=== PATIENT | female | born 1955 | race Two or more races ===

== ENCOUNTER 2020-03-30 21:51 | Inpatient (IN) | payer MEDICAID, OTHER ==
[~2020-03-30] VITALS: Ht 167.6 cm; Wt 56.2 kg
--- NOTE | 2020-03-30 22:10 | NUR ---
LOREE FROM [facility] [place] FOR C/O FEVER. pt afebrile upon arrival temp of 98.8. PT TESTED +FOR COVID 19 ON 03/27. vs checked. stable. iv access started blood draw done. sent to lab
[2020-03-30] MEDS ORDERED: IV NS 0.9% 500 ML BAG IV ONE (22:30)
--- NOTE | 2020-03-30 22:41 | NUR ---
urine collected sent to lab
[2020-03-30 22:55] LABS: BASOPHILS % (AUTO) 0.8 % (0.0-2.0); EOSINOPHILS % (AUTO) 2.5 % (0.0-6.0); HEMATOCRIT 39 % (33-45); HEMOGLOBIN 12.8 g/dL (11.5-14.8); LYMPHOCYTES # (AUTO) 1.8 /CMM (0.8-4.8); LYMPHOCYTES % (AUTO) 49.6 % (20.0-44.0); MEAN CORPUSCULAR HGB CONC 33 g/dl (31.0-36.0); MEAN CORPUSCULAR VOLUME 92 fL (82-100); MONOCYTES # (AUTO) 0.3 /CMM (0.1-1.30); MONOCYTES % (AUTO) 7.8 % (2.0-12.0); NEUTROPHILS # (AUTO) 1.4 /CMM (1.8-8.9); NEUTROPHILS % (AUTO) 39.3 % (43.0-81.0); PLATELET COUNT (AUTO) 331 /CMM (150-450); RED BLOOD CELL COUNT(AUTO) 4.18 MIL/uL (4.0-5.2); WHITE BLOOD COUNT (AUTO) 3.6 K/uL (4.3-11.0)
[2020-03-30 22:56] LABS: BILIRUBIN,URINE Negative (NEGATIVE); COLOR,URINE YELLOW (YELLOW); LEUKOCYTE ESTERASE ,URINE Trace (NEGATIVE); NITRITE, URINE Negative (NEGATIVE); PROTEIN,URINE Negative (NEGATIVE); UGLUCOSE Negative (NEGATIVE); UROBILINOGEN,URINE 0.2 EU/dL (0.2)
[2020-03-30 23:05] LABS: CALCIUM, SERUM 8.3 mg/dL (8.5-10.1); CARBON DIOXIDE 24 mmol/L (21-32); CHLORIDE 104 mmol/L (98-107); CREATININE 1.1 mg/dL (0.6-1.3); GLUCOSE 101 mg/dL (74-106); POTASSIUM 3.8 mmol/L (3.5-5.1); SODIUM SERUM 138 mmol/L (136-145); UREA NITROGEN, BLOOD 36 mg/dL (7-18)
[2020-03-30 23:10] LABS: ALANINE AMINOTRANSFERASE 25 U/L (12-78); ALBUMIN 3.1 g/dL (3.4-5.0); ALKALINE PHOSPHATASE 78 U/L (46-116); ASPARTATE AMINOTRANSFERASE 21 U/L (15-37); BILIRUBIN,DIRECT 0.1 mg/dL (0.0-0.2); BILIRUBIN,TOTAL 0.2 mg/dL (0.2-1.0); TOTAL PROTEIN, SERUM 7.6 g/dL (6.4-8.2)
[2020-03-30 23:25] LABS: BACTERIA,URINE Few /HPF (None Seen); RBC,URINE NONE SEEN /HPF (0-2); SQUAMOUS EPITHELIAL CELL,UR Few /HPF (None Seen)
[2020-03-30] MEDS ORDERED: DEXAMETHASONE SOD PHOSPHATE 10 MG/ML VIAL IV ONE (23:30)
--- NOTE | 2020-03-30 23:39 | NUR ---
TELE 117-1
[2020-03-31] MEDS ORDERED: ATOR40TA PO (00:05)
[2020-03-31] MEDS ORDERED: MEGE40TA5 PO (00:05)
[2020-03-31] MEDS ORDERED: LORA-259 PO (00:05)
[2020-03-31] MEDS ORDERED: DIVA-78 PO (00:05)
[2020-03-31] MEDS ORDERED: LEVO100T9 PO (00:05)
[2020-03-31] MEDS ORDERED: DOXE10CA2 PO (00:05)
[2020-03-31] MEDS ORDERED: SERT100T PO (00:05)
[2020-03-31] MEDS ORDERED: QUET100T PO (00:05)
[2020-03-31] MEDS ORDERED: HYDR12.55 PO (00:05)
[2020-03-31] MEDS ORDERED: OXYB5TAB16 PO (00:05)
--- NOTE | 2020-03-31 00:09 | NUR ---
report given to rigoberto sorto for emma
[2020-03-31] MEDS ORDERED: DEXAMETHASONE SOD PHOSPHATE 10 MG/ML VIAL ONE (00:11)
[2020-03-31] MEDS ORDERED: HYDROCODONE/APAP 5/325MG TABLET PO PRN (01:30)
[2020-03-31] MEDS ORDERED: MORPHINE SULFATE INJ 2 MG/ML DISP.SYRIN IV PRN (01:30)
[2020-03-31] MEDS ORDERED: IV NS 0.9% 1,000 ML IV ONE (01:30)
[2020-03-31] MEDS ORDERED: MAG HYDROX/AL HYDROX/SIMETH 30 ML UDC PO PRN (01:30)
[2020-03-31] MEDS ORDERED: ZOLPIDEM TARTRATE 5 MG TABLET PO PRN (01:30)
[2020-03-31] MEDS ORDERED: ONDANSETRON HCL/PF 4 MG/2 ML VIAL IVP PRN (01:30)
[2020-03-31] MEDS ORDERED: MAGNESIUM HYDROXIDE 30 ML UDC PO PRN (01:30)
[2020-03-31] MEDS ORDERED: Z GUARD REMEDY 2 OZ OINT TP PRN (01:30)
--- NOTE | 2020-03-31 01:30 | NUR ---
PT TRANSPORTED TO 1ST FLOOR
[2020-03-31 02:00] VITALS: BP 149/86
--- NOTE | 2020-03-31 02:00 | NUR ---
RN NOTE PT ARRIVED TO THE UNIT VIA GURNEY , PT IS A/A/O X1. PT IS ON RS SATING 100%, TELE MONITOR SHOWING SR AT 80'S. SAFETY MEASURES IN PLACE.
[2020-03-31] MEDS: ENOXAPARIN SODIUM 40 MG/0.4 ML DISP.SYRIN SQ SCH ×2 (02:59→21:07)
[2020-03-31] MEDS: CEFTRIAXONE 1 G in IV D5W 50 ML IV SCH (03:00)
--- NOTE | 2020-03-31 03:00 | NUR ---
RN NOTE CALLED EDYTA CH ( NUMBER IN PT'S CHART)TO GET INFORMATION REGARDING PT'S FLU SHOT, I WAS TOLD PT LEFT OUR FACILITY LONG TIME AGO. WILL FOLLOW UP.
[2020-03-31 04:00] VITALS: BP 145/77
[2020-03-31 07:06] LABS: BASOPHILS % (AUTO) 0.2 % (0.0-2.0); EOSINOPHILS % (AUTO) 0.2 % (0.0-6.0); HEMATOCRIT 36 % (33-45); HEMOGLOBIN 12.3 g/dL (11.5-14.8); LYMPHOCYTES # (AUTO) 0.9 /CMM (0.8-4.8); LYMPHOCYTES % (AUTO) 21.5 % (20.0-44.0); MEAN CORPUSCULAR HGB CONC 34 g/dl (31.0-36.0); MEAN CORPUSCULAR VOLUME 91 fL (82-100); MONOCYTES # (AUTO) 0.1 /CMM (0.1-1.30); MONOCYTES % (AUTO) 2.1 % (2.0-12.0); NEUTROPHILS # (AUTO) 3.1 /CMM (1.8-8.9); PLATELET COUNT (AUTO) 328 /CMM (150-450); RED BLOOD CELL COUNT(AUTO) 3.92 MIL/uL (4.0-5.2); WHITE BLOOD COUNT (AUTO) 4.1 K/uL (4.3-11.0)
[2020-03-31 07:12] LABS: ALBUMIN 3.2 g/dL (3.4-5.0); BILIRUBIN,TOTAL 0.2 mg/dL (0.2-1.0); CALCIUM, SERUM 8.6 mg/dL (8.5-10.1); PHOSPHORUS 3.3 mg/dL (2.5-4.9); POTASSIUM 3.9 mmol/L (3.5-5.1); TOTAL PROTEIN, SERUM 7.6 g/dL (6.4-8.2)
--- NOTE | 2020-03-31 07:30 | NUR ---
MEAT CURER OPENING NOTES Patient is alert and oriented x1. Patient is breathing even and unlabored. No c/o sob, no s/sx of respiratory distress. Patient is saturating 96% on room air. LAC 20 gauze noted to be patent and flushes well. Bed is in lowest and locked position. Call light with in reach. Will continue to monitor for safety and fall.
[2020-03-31 07:40] LABS: THYROID STIMULATING HORMONE 0.875 uIU/mL (0.358-3.74)
--- NOTE | 2020-03-31 07:42 | NUR ---
RN NOTE NO ACUTE CHANGES DURING MY SHIFT, REPORT GIVEN TO INCOMING SHIFT FOR SOM.
[2020-03-31 08:00] VITALS: BP 121/75
[2020-03-31] MEDS: LEVOTHYROXINE SODIUM 100 MCG TABLET PO SCH (08:37)
[2020-03-31] MEDS: LORAZEPAM 1 MG TABLET PO SCH ×2 (08:40→17:10)
[2020-03-31] MEDS: OXYBUTYNIN CHLORIDE 5 MG TABLET PO SCH (08:40)
[2020-03-31] MEDS: QUETIAPINE FUMARATE 100 MG TABLET PO SCH ×2 (08:42→17:10)
[2020-03-31] MEDS: MEGESTROL ACETATE 40 MG TABLET PO SCH ×4 (08:42→21:04)
[2020-03-31] MEDS: HYDROCHLOROTHIAZIDE 25 MG TABLET PO SCH (08:42)
[2020-03-31] MEDS: SERTRALINE HCL 50 MG TABLET PO SCH (08:42)
[2020-03-31 12:00] VITALS: BP 111/64
[2020-03-31] MEDS: ACETAMINOPHEN 325 MG TABLET PO PRN ×2 (13:37→21:20)
[2020-03-31] MEDS ORDERED: IV NS 0.9% 1,000 ML IV PRN (15:30)
[2020-03-31 16:00] VITALS: BP 138/85
--- NOTE | 2020-03-31 19:09 | NUR ---
GENERAL SUPERINTENDENT CLOSING NOTES Patient is alert and oriented x1/2. Patient is breathing even and unlabored. No c/o sob, no s/sx of respiratory distress. Patient is saturating 98 % on room air. LAC 20 gauze noted to be patent and flushes well and running 80ml/hour. Bed is in lowest and locked position. Call light with in reach. Will endorse to next shift for SOM.
--- NOTE | 2020-03-31 19:40 | NUR ---
RN NOTES RECEIVED PT IN BED. AO X 1-2. NO DISTRESS NOTED. ON TELE MONITORING, SHOWS SR WITH HR OF 76. PT AMBULATORY, GOING TO RESTROOM WITH UNSTEADY GAIT, ASSISTED STAND BY. PT DOES NOT WANT TO BE TOUCHED. TOLD PT TO USE CALL LIGHT FOR HELP. KEPT BED ALARM ON. WITH LEFT AC 20G, NS RUNNING AT 80ML/HR. NO SIGNS OF INFILTRATION. IV PATENT AND INTACT. SKIN INTACT. ALL SAFETY MEASURES IMPLEMENTED PER PROTOCOL, CALL LIGHT WITHIN REACH, BED LOCKED IN LOWEST POSITION. SIDE RAILS UP X2. WILL CONTINUE TO MONITOR.
[2020-03-31 20:00] VITALS: BP 101/57
[2020-03-31] MEDS: ATORVASTATIN 40 MG TABLET PO SCH (21:04)
[2020-03-31] MEDS: DOXEPIN HCL 10 MG CAPSULE PO SCH (21:04)
[2020-03-31] MEDS: DIVALPROEX SODIUM 500 MG TABLET.DR PO SCH (21:04)
--- NOTE | 2020-03-31 21:20 | NUR ---
RN NOTE PT COMPLAINED OF HEADACHE. TYLENOL 650 GIVEN ORDERED. WILL CONTINUE TO MONITOR.
[2020-03-31] MEDS ORDERED: DEXAMETHASONE SOD PHOSPHATE 10 MG/ML VIAL IV SCH (23:30)
[2020-04-01] VITALS: BP 124/58
[2020-04-01] MEDS: CEFTRIAXONE 1 G in IV D5W 50 ML IV SCH (00:48)
[2020-04-01 04:00] VITALS: BP 127/70
[2020-04-01] MEDS: ACETAMINOPHEN 325 MG TABLET PO PRN ×2 (05:54→15:53)
--- NOTE | 2020-04-01 05:54 | NUR ---
RN NOTES PT COMPLAINED OF HEADACHE AGAIN AND ASKING FOR TYLENOL. PT WITH ON AND OFF SLEEP.
[2020-04-01] MEDS: LEVOTHYROXINE SODIUM 100 MCG TABLET PO SCH (06:09)
--- NOTE | 2020-04-01 06:49 | NUR ---
RN NOTE PT CONTINUE ON TELE MONITORING, SR AT THIS TIME WITH HR OF 77. ASSISTED PT IN GOING TO THE RESTROOM. ON FREQUENT VISUAL CHECKS. NONPRODUCTIVE COUGH NOTED DURING SHIFT, REMAIN AFEBRILE. CONTINUE ON IVF OF NS AT 75ML/HR. NO SIGNS OF INFILTRATION NOTED. IV SITE REMAIN PATENT AND INTACT. BED LOCKED IN LOWEST POSITION, CALL LIGHT WITHIN REACH AT ALL TIMES. SIDE RAILS UP X2. ISOLATION PRECAUTION FOR COVID OBSERVED.
[2020-04-01 06:51] LABS: BASOPHILS % (AUTO) 1.4 % (0.0-2.0); EOSINOPHILS % (AUTO) 1.6 % (0.0-6.0); HEMATOCRIT 35 % (33-45); HEMOGLOBIN 11.9 g/dL (11.5-14.8); LYMPHOCYTES # (AUTO) 1.9 /CMM (0.8-4.8); LYMPHOCYTES % (AUTO) 53.6 % (20.0-44.0); MEAN CORPUSCULAR HGB CONC 34 g/dl (31.0-36.0); MEAN CORPUSCULAR VOLUME 92 fL (82-100); MONOCYTES # (AUTO) 0.2 /CMM (0.1-1.30); MONOCYTES % (AUTO) 6.4 % (2.0-12.0); NEUTROPHILS # (AUTO) 1.3 /CMM (1.8-8.9); PLATELET COUNT (AUTO) 358 /CMM (150-450); RED BLOOD CELL COUNT(AUTO) 3.81 MIL/uL (4.0-5.2); WHITE BLOOD COUNT (AUTO) 3.5 K/uL (4.3-11.0)
--- NOTE | 2020-04-01 07:00 | NUR ---
RN OPENING NOTE PT IS A/O X1 AND UNCOOPERATIVE. PT IS SPEAKS BRUNEIAN AND CAN UNDERSTAND NURSE INSTRUCTIONS. PT IS CURRENTLY ON ROOM AIR WITH NO RESPIRATORY DISTRESS PRESENT. O2 SAT IS 93%. PT IS SR ON THE MONITOR WITH HR OF 74. PT IS ABLE TO AMBULATE INDEPENDENTLY. NURSE STAND BY RECOMMENDED. SKIN IS INTACT. HEPLOCK PRESENT IN THE LEFT AC. SAFETY MEASURES IN PLACE. CALL LIGHT WITHIN REACH. LOWERED BED. SIDE RAILS RAISED. WILL CONTINUE TO MONITOR
[2020-04-01 07:36] LABS: CALCIUM, SERUM 8.4 mg/dL (8.5-10.1); CREATININE 1.1 mg/dL (0.6-1.3); POTASSIUM 3.7 mmol/L (3.5-5.1)
[2020-04-01 08:00] VITALS: BP 117/65
--- NOTE | 2020-04-01 08:30 | NUR ---
PT REFUSED BREAKFAST, 0% CONSUMED. PT STILL REFUSES DESPITE RN EDUCATION ABOUT THE IMPORTANCE OF EATING AND THE RISKS OF AVOIDING BREAKFAST.
[2020-04-01] MEDS: SERTRALINE HCL 50 MG TABLET PO SCH ×2 (09:00→09:12)
[2020-04-01] MEDS: HYDROCHLOROTHIAZIDE 25 MG TABLET PO SCH ×2 (09:00→09:12)
[2020-04-01] MEDS: LORAZEPAM 1 MG TABLET PO SCH ×3 (09:00→16:17)
[2020-04-01] MEDS: MEGESTROL ACETATE 40 MG TABLET PO SCH ×5 (09:00→22:35)
[2020-04-01] MEDS: QUETIAPINE FUMARATE 100 MG TABLET PO SCH ×3 (09:00→16:17)
[2020-04-01] MEDS: OXYBUTYNIN CHLORIDE 5 MG TABLET PO SCH ×2 (09:00→09:12)
--- NOTE | 2020-04-01 09:00 | NUR ---
PT REFUSED ALL MEDS DESPITE NURSE ADVICE. PT IS ALERTED OF THE RISKS AND BENEFITS OF REFUSING MEDICATION.
--- NOTE | 2020-04-01 15:44 | NUR ---
PT SPENT 3 HOURS SITTING IN THE TOILET BOWL AND REFUSED TO BE BOTHERED. VERBALLY ABUSIVE AND TRIED HITTING THE STAFF.PT PULLED OUT HER IV HEPLOCK AND THREW HER TELE MONITOR BOX ON THE FLOOR. PT REFUSED HER MEALS AND REFUSED TO DRINK FLUIDS EITHER NO MATTER EVEN IF WE OFFER SNACKS,PT INSISTS TO REFUSE.PT REDUSED VITAL SIGNS TO BE TAKEN.NOTIFIED CAITIE GONZALEZ.
--- NOTE | 2020-04-01 19:30 | NUR ---
RN CLOSING NOTE PT IS A/O X1 AND UNCOOPERATIVE. PT IS SPEAKS CHINESE AND CAN UNDERSTAND NURSE INSTRUCTIONS. PT IS CURRENTLY ON ROOM AIR WITH NO RESPIRATORY DISTRESS PRESENT. PT IS ABLE TO AMBULATE INDEPENDENTLY. NURSE STAND BY RECOMMENDED. SKIN IS INTACT. SAFETY MEASURES IN PLACE. CALL LIGHT WITHIN REACH. LOWERED BED. SIDE RAILS RAISED.
--- NOTE | 2020-04-01 19:45 | NUR ---
RN NOTE RECEIVED PT IN THE RESTROOM, SITTING ON THE TOILET, REFUSED TO BE BOTHERED AND GO BACK TO BED. VERBALLY RESPONDING. NO DISTRESS NOTED. WILL CONTINUE TO MONITOR.
[2020-04-01 20:00] VITALS: BP 118/63
--- NOTE | 2020-04-01 20:15 | NUR ---
RN NOTE PT WENT BACK TO BED. NO RESP DISTRESS NOTED. TOLERATING ROOM AIR. DENIES ANY SOB. PT WITH NO IV ACCESS. WILL CONTINUE TO MONITOR. ALL SAFETY MEASURES IMPLEMENTED. CALL LIGHT WITHIN REACH. BED LOCKED IN LOWEST POSITION. BED ALARM ON. SIDE RAILS UP X2.
[2020-04-01] MEDS: ATORVASTATIN 40 MG TABLET PO SCH (22:35)
[2020-04-01] MEDS: DOXEPIN HCL 10 MG CAPSULE PO SCH (22:35)
[2020-04-01] MEDS: DIVALPROEX SODIUM 500 MG TABLET.DR PO SCH (22:35)
[2020-04-01] MEDS: ENOXAPARIN SODIUM 40 MG/0.4 ML DISP.SYRIN SQ SCH (22:38)
[2020-04-02 04:00] VITALS: BP 122/66
--- NOTE | 2020-04-02 06:00 | NUR ---
RN NOTES RECEIVED RESULTS FROM BLOOD CULTURE PT WITH GRAM + COCCI INCLUSTER. NOTIFIED DR MUHAMMAD, NO NEW ORDER AT THIS TIME AND JUST ENDORSE IT TO AM NURSE TO MEDICAL EDUCATION COORDINATOR LISA.
[2020-04-02] MEDS: LEVOTHYROXINE SODIUM 100 MCG TABLET PO SCH (06:33)
[2020-04-02 06:49] LABS: BASOPHILS % (AUTO) 0.8 % (0.0-2.0); EOSINOPHILS % (AUTO) 2.2 % (0.0-6.0); HEMATOCRIT 36 % (33-45); HEMOGLOBIN 12.2 g/dL (11.5-14.8); LYMPHOCYTES # (AUTO) 1.9 /CMM (0.8-4.8); LYMPHOCYTES % (AUTO) 46.9 % (20.0-44.0); MEAN CORPUSCULAR HGB CONC 34 g/dl (31.0-36.0); MEAN CORPUSCULAR VOLUME 91 fL (82-100); MONOCYTES # (AUTO) 0.2 /CMM (0.1-1.30); MONOCYTES % (AUTO) 5.6 % (2.0-12.0); NEUTROPHILS # (AUTO) 1.8 /CMM (1.8-8.9); NEUTROPHILS % (AUTO) 44.5 % (43.0-81.0); PLATELET COUNT (AUTO) 417 /CMM (150-450); RED BLOOD CELL COUNT(AUTO) 3.94 MIL/uL (4.0-5.2)
--- NOTE | 2020-04-02 07:15 | NUR ---
RN NOTES PT REMAIN STABLE AND AFEBRILE DURING SHIFT, WITH BATHROOM PRIVILEGES. ON FREQUENT VISUAL CHECKS. ATTENDED TO NEEDS. CALL LIGHT WITHIN REACH AT ALL TIMES. BED LOCKED IN LOWEST POSITION. WILL ENDORSE TO NEXT SHIFT NURSE FOR SOM.
[2020-04-02 07:16] LABS: CALCIUM, SERUM 8.6 mg/dL (8.5-10.1); CREATININE 0.9 mg/dL (0.6-1.3); POTASSIUM 3.7 mmol/L (3.5-5.1)
--- NOTE | 2020-04-02 07:30 | NUR ---
FULFILLMENT MAIL CLERK 1 PATIENT IN BED, NO S/S OF DISTRESS, ON ROOM AIR O2 SAT > 95%, A/O X1, BATHROOM PRIVILEGES, AMBULATORY, CARDIAC DIET, NO IV IN PLACED AND MD ORDERED TO NOT PUT ONE IN BECAUSE PATIENT REPEATEDLY REMOVES THEM, BED IN LOWEST LOCKED POSITION, CALL LIGHT WITHIN REACH, WILL CONTINUE TO MONITOR.
[2020-04-02 08:00] VITALS: BP 137/80
--- NOTE | 2020-04-02 08:31 | NUR ---
RN MED SURG1 SPOKE TO LISA CUADRA ABOUT POSITIVE GRAM COCCI IN BLOOD CULTURE AND <0.05 PROCALCITONIN AND ORDERED TO DISCHARGE ONCE DISCUSS PLAN WITH INFECTIOUS DISEASE.
[2020-04-02] MEDS: SERTRALINE HCL 50 MG TABLET PO SCH (08:46)
[2020-04-02] MEDS: LORAZEPAM 1 MG TABLET PO SCH ×2 (08:46→16:57)
[2020-04-02] MEDS: OXYBUTYNIN CHLORIDE 5 MG TABLET PO SCH (08:47)
[2020-04-02] MEDS: QUETIAPINE FUMARATE 100 MG TABLET PO SCH ×2 (08:47→16:58)
[2020-04-02] MEDS: MEGESTROL ACETATE 40 MG TABLET PO SCH ×3 (08:47→16:57)
[2020-04-02] MEDS: HYDROCHLOROTHIAZIDE 25 MG TABLET PO SCH (08:48)
--- NOTE | 2020-04-02 12:30 | NUR ---
RN MED SURG1 PATIENT REFUSED 1200 VITALS.
--- NOTE | 2020-04-02 14:05 | NUR ---
PATIENT INTUBATED, TOLERATED WELL, CHEST X RAY PERFORMED TO CONFIRM PLACEMENT, RT MD, ICU NURSE AND PRIMARY NURSE PRESENT FOR INTUBATION. ETOMIDATE AND SUCCINYLCHOLINE GIVEN PRIOR TO INTUBATION. MEDS PULLED FROM INTUBATION TRAY FROM ICU. RETURNED INTUBATION TRAY TO ICU ONCE FINISHED. PATIENT TRANSFERED TO ICU IN BED, REPORT GIVEN TO CELIA THE ICU NURSE FOR THE PATIENT.
[2020-04-02] MEDS ORDERED: ENOX40DI SQ (14:16)
[2020-04-02 16:00] VITALS: BP 117/79
--- NOTE | 2020-04-02 16:00 | NUR ---
SPOKE TO ROSIE WITH CASE MANAGEMENT, SAID FOR THE PATIENT SHE HAS A CONSERVATOR WHO NEEDS TO BE CALLED AT [phone], ASK FOR [facility]A AND NOTIFY WHEN PATIENT IS TRANSFERRED.
--- NOTE | 2020-04-02 18:58 | NUR ---
GREENHOUSE SUPERINTENDENT 1 PATIENT IN BED, NO S/S OF DISTRESS, ON ROOM AIR O2 SAT > 95%, A/O X1, BATHROOM PRIVILEGES, AMBULATORY, CARDIAC DIET, NO IV IN PLACED AND MD ORDERED TO NOT PUT ONE IN BECAUSE PATIENT REPEATEDLY REMOVES THEM, BED IN LOWEST LOCKED POSITION, CALL LIGHT WITHIN REACH, WILL CONTINUE TO MONITOR. AWAITING TRANSPORT DEPUTY JUVENILE OFFICER.
--- NOTE | 2020-04-02 19:53 | NUR ---
RN NOTE PATIENT PICKED UP BY TRANSPORT TEAM [facility] AND GAVE REPORT TO TRANSPORTER JOAN. TOLD TO CALL MIDA THE CONSERVATOR ONCE ARRIVED AT FACILITY. RN CALLED MIDA AND NOTIFIED THAT THE PATIENT HAS BEEN PICKED UP FOR TRANSPORT. PATIENT BELONGINGS PROVIDED, ALL DOCUMENTATION AND DISCHARGE EDUCATION PROVIDED TO TRANSPORT, VITALS STABLE WHEN LEAVING.
== END 2020-04-02 19:37 | DRG 137 ==
LOC: ER 21:53 → TELE1 23:40 → MEDSG1 04-01 16:29
PROVIDERS: ADMIT Nurse Practitioner Acute Care; ATTEND Nurse Practitioner Acute Care
DX: U07.1 COVID-19 (principal); J12.82 Pneumonia due to coronavirus disease 2019; E03.9 Hypothyroidism, unspecified; J44.0 Chronic obstructive pulmonary disease with (acute) lower respiratory infection; N39.0 Urinary tract infection, site not specified; M19.90 Unspecified osteoarthritis, unspecified site; E11.9 Type 2 diabetes mellitus without complications; D68.59 Other primary thrombophilia; R27.0 Ataxia, unspecified; E78.5 Hyperlipidemia, unspecified; E44.1 Mild protein-calorie malnutrition; F32.9 Major depressive disorder, single episode, unspecified; B19.20 Unspecified viral hepatitis C without hepatic coma; F25.9 Schizoaffective disorder, unspecified; Z88.4 Allergy status to anesthetic agent; Z79.899 Other long term (current) drug therapy; J15.9 Unspecified bacterial pneumonia; D72.819 Decreased white blood cell count, unspecified; K27.9 Peptic ulcer, site unspecified, unspecified as acute or chronic, without hemorrhage or perforation; G31.84 Mild cognitive impairment of uncertain or unknown etiology; G93.41 Metabolic encephalopathy; Z74.09 Other reduced mobility; F42.9 Obsessive-compulsive disorder, unspecified; I10 Essential (primary) hypertension; N17.9 Acute kidney failure, unspecified; Z79.890 Hormone replacement therapy; E86.0 Dehydration; R62.7 Adult failure to thrive
CPT/HCPCS: 36415; 71045-TC; 80048-TC; 80053-TC; 80061-TC; 80076-TC; 81001; 83605-TC; 83735-TC; 84100-TC; 84443-TC; 84484-TC; 85025-TC; 85378-TC; 85730-TC; 86140-TC; 86480; 86803; 87040-TC; 87081-TC; 87086-TC; 87536; G0378; J0696; J1100; J1650; J7030; J7040; J7060; U0003

== ENCOUNTER 2020-07-03 21:25 | Emergency (ER) | payer MEDICAID, OTHER ==
[~2020-07-03] VITALS: Ht 167.6 cm; Wt 56.2 kg
[~2020-07-03 21:25] MED LIST: ATOR40TA PO; DIVA-78 PO; DOXE10CA2 PO; ENOX40DI SQ; HYDR12.55 PO; LEVO100T9 PO; LORA-259 PO; MEGE40TA5 PO; OXYB5TAB16 PO; QUET100T PO; SERT100T PO
[2020-07-03 22:19] LABS: BASOPHILS % (AUTO) 0.3 % (0.0-2.0); EOSINOPHILS % (AUTO) 4.7 % (0.0-6.0); HEMATOCRIT 37 % (33-45); HEMOGLOBIN 12.3 g/dL (11.5-14.8); LYMPHOCYTES # (AUTO) 1.9 /CMM (0.8-4.8); LYMPHOCYTES % (AUTO) 37.1 % (20.0-44.0); MEAN CORPUSCULAR HGB CONC 33 g/dl (31.0-36.0); MEAN CORPUSCULAR VOLUME 94 fL (82-100); MONOCYTES # (AUTO) 0.6 /CMM (0.1-1.30); MONOCYTES % (AUTO) 11.9 % (2.0-12.0); NEUTROPHILS # (AUTO) 2.3 /CMM (1.8-8.9); PLATELET COUNT (AUTO) 350 /CMM (150-450); RED BLOOD CELL COUNT(AUTO) 3.95 MIL/uL (4.0-5.2); WHITE BLOOD COUNT (AUTO) 5.1 K/uL (4.3-11.0)
[2020-07-03] MEDS ORDERED: IV NS 0.9% 1,000 ML BAG IV ONE (22:30)
[2020-07-03 22:44] LABS: ALANINE AMINOTRANSFERASE 19 U/L (12-78); ALBUMIN 3.3 g/dL (3.4-5.0); ALKALINE PHOSPHATASE 76 U/L (46-116); ASPARTATE AMINOTRANSFERASE 19 U/L (15-37); BILIRUBIN,DIRECT 0.1 mg/dL (0.0-0.2); BILIRUBIN,TOTAL 0.2 mg/dL (0.2-1.0); CALCIUM, SERUM 8.3 mg/dL (8.5-10.1); CARBON DIOXIDE 24 mmol/L (21-32); CHLORIDE 103 mmol/L (98-107); CREATININE 1.4 mg/dL (0.6-1.3); GLUCOSE 139 mg/dL (74-106); POTASSIUM 4.2 mmol/L (3.5-5.1); SODIUM SERUM 139 mmol/L (136-145); TOTAL PROTEIN, SERUM 7.4 g/dL (6.4-8.2); UREA NITROGEN, BLOOD 27 mg/dL (7-18)
[2020-07-03 22:59] LABS: ACETAMINOPHEN < 2 ug/ml (10-30); ALCOHOL, BLOOD < 3 mg/dL (0-0)
[2020-07-03] MEDS ORDERED: OLANZAPINE 10 MG VIAL IM ONE ×2 (23:00→23:33)
[2020-07-03 23:01] LABS: BILIRUBIN,URINE Negative (NEGATIVE); COLOR,URINE YELLOW (YELLOW); LEUKOCYTE ESTERASE ,URINE Negative (NEGATIVE); NITRITE, URINE Negative (NEGATIVE); PH,URINE 6.5 (5.0-8.0); PROTEIN,URINE Negative (NEGATIVE); UGLUCOSE Negative (NEGATIVE); UROBILINOGEN,URINE 0.2 EU/dL (0.2)
--- NOTE | 2020-07-03 23:05 | NUR ---
Call from lab. Rapid covid negative.
--- NOTE | 2020-07-04 01:46 | NUR ---
PATIENT TO ER BED 11 BIB EMS FROM [facility] FOR "[facility]". PATIENT EXHIBITS LIP-SMACKING. PATIENT UNABLE TO PROVIDE SPECIFIC INFORMATION REGARDING PERSONAL MEDICAL HISTORY DUE TO POOR PRONUNCIATION. PATIENT IS AAOX2. NO SOB. BREATHING EVENLY AND UNLABORED ON ROOM AIR. PATIENT DENIES SI/ HI/ SITTER IS AT BEDSIDE. PT IS CONNECTED TO THE MONITOR. CHANGED INTO A GOWN.
[2020-07-04] MEDS ORDERED: IV NS 0.9% 1,000 ML BAG IV ONE (04:00)
[2020-07-04 06:19] LABS: CALCIUM, SERUM 7.7 mg/dL (8.5-10.1); CREATININE 1.2 mg/dL (0.6-1.3); POTASSIUM 3.8 mmol/L (3.5-5.1)
--- NOTE | 2020-07-04 07:50 | NUR ---
Patient is resting comfortably in bed with eyes closed. Easily aroused. VSS
--- NOTE | 2020-07-04 10:42 | NUR ---
PT AAOX2, VSS. RR EVEN & UNLABORED. DENIES CP, SOB, DIZZINESS, NAUSEA, WEAKNESS, ABD PAIN AT THIS TIME. NAD NOTED & WILL CONT TO MONITOR.
--- NOTE | 2020-07-04 13:00 | NUR ---
PT SITTING UP EATING LUNCH, PT CHERIE WELL. WILL CONT TO MONITOR.
--- NOTE | 2020-07-04 13:57 | NUR ---
CALLED SAPPHIRE STYLUS GRINDER CATHY FOR EVAL. LEFT VOICEMAIL.
--- NOTE | 2020-07-04 15:28 | NUR ---
CALLED CREDIT SUPPORT COUNSELOR FOR PSYCH EVAL LEFT VOICEMAIL
--- NOTE | 2020-07-04 15:35 | NUR ---
PT STABLE, NAD NOTED AT THIS TIME. WILL CONT TO MONITOR.
--- NOTE | 2020-07-04 19:15 | NUR ---
REPORT GIVEN TO GINA, CAREGIVER AT [facility] FOR CONT OF CARE. AWAITING [facility] TRANSPORT.
--- NOTE | 2020-07-04 20:49 | NUR ---
[id number] AT BEDSIDE FOR PT TRANSPORT TO [facility]. PT IS IN STABLE CONDITION FOR TRANSPORT. NAD NOTED. REPORT GIVEN
[2020-07-04 21:21] VITALS: BP 132/83
--- NOTE | 2020-07-04 21:21 | NUR ---
PT TRANSFERED BACK.
== END 2020-07-04 21:21 ==
LOC: ER 21:27
DX: F20.9 Schizophrenia, unspecified (principal); E86.0 Dehydration; R47.9 Unspecified speech disturbances; I10 Essential (primary) hypertension; E03.9 Hypothyroidism, unspecified; J44.9 Chronic obstructive pulmonary disease, unspecified; R27.0 Ataxia, unspecified; Z86.19 Personal history of other infectious and parasitic diseases; R00.0 Tachycardia, unspecified; E11.9 Type 2 diabetes mellitus without complications; Z79.899 Other long term (current) drug therapy; Z79.01 Long term (current) use of anticoagulants; Z20.822 Contact with and (suspected) exposure to COVID-19
CPT/HCPCS: 36415 ×2; 80048 ×2; 80076; 80299; 80307; 80320; 81003; 85025; 87081; 87426; 93005; 96360; 96361; 96372; 99285; C9803; J3490; J7030 ×2; G0480

== ENCOUNTER 2020-09-08 08:03 | Emergency (ER) | payer OTHER ==
[~2020-09-08] VITALS: Ht 162.6 cm; Wt 63.0 kg
--- NOTE | 2020-09-08 08:10 | NUR ---
[id number] [facility] TO STAFF. VERSED 5MG IM GIVEN USER EXPERIENCE RESEARCHER. ON ROOM AIR, BREATHING EVENLY AND UNLABORED. KEPT COMFORTABLE, WILL CONTINUE TO MONITOR ACCORDINGLY.
[2020-09-08] MEDS ORDERED: SENN-261 PO (08:20)
[2020-09-08] MEDS ORDERED: GUAI100S11 PO (08:20)
[2020-09-08] MEDS ORDERED: ACET-868 PO (08:20)
[2020-09-08] MEDS ORDERED: LACT10SO69 PO (08:20)
[2020-09-08] MEDS ORDERED: TRAZ-182 PO (08:20)
[2020-09-08] MEDS ORDERED: IBUP-1953 PO (08:20)
[2020-09-08] MEDS ORDERED: DOCU-141 PO (08:20)
[2020-09-08] MEDS ORDERED: TEMA15CA PO (08:20)
[2020-09-08] MEDS ORDERED: MAG30ORA PO (08:20)
[2020-09-08 08:23] LABS: BASOPHILS # (AUTO) 0.1 K/uL (0.0-0.2); EOSINOPHILS % (AUTO) 4.7 % (0.0-6.0); HEMATOCRIT 40 % (33-45); HEMOGLOBIN 12.9 g/dL (11.5-14.8); LYMPHOCYTES # (AUTO) 1.1 K/uL (0.8-4.8); LYMPHOCYTES % (AUTO) 27.1 % (20.0-44.0); MEAN CORPUSCULAR HGB CONC 33 g/dl (31.0-36.0); MEAN CORPUSCULAR VOLUME 92 fL (82-100); MONOCYTES # (AUTO) 0.3 K/uL (0.1-1.30); MONOCYTES % (AUTO) 7.2 % (2.0-12.0); NEUTROPHILS # (AUTO) 2.3 K/uL (1.8-8.9); PLATELET COUNT (AUTO) 321 K/uL (150-450)
[2020-09-08 08:31] LABS: CARBON DIOXIDE 24 mmol/L (21-32); CHLORIDE 105 mmol/L (98-107); CREATININE 1.1 mg/dL (0.6-1.3); GLUCOSE 87 mg/dL (74-106); POTASSIUM 3.7 mmol/L (3.5-5.1); SODIUM SERUM 140 mmol/L (136-145); UREA NITROGEN, BLOOD 25 mg/dL (7-18)
[2020-09-08 08:36] LABS: ALANINE AMINOTRANSFERASE 19 U/L (12-78); ALBUMIN 3.8 g/dL (3.4-5.0); ALKALINE PHOSPHATASE 86 U/L (46-116); ASPARTATE AMINOTRANSFERASE 20 U/L (15-37); BILIRUBIN,DIRECT 0.1 mg/dL (0.0-0.2); BILIRUBIN,TOTAL 0.4 mg/dL (0.2-1.0); TOTAL PROTEIN, SERUM 8.3 g/dL (6.4-8.2)
[2020-09-08 08:37] LABS: ACETAMINOPHEN 0 ug/ml (10-30); ALCOHOL, BLOOD < 3 mg/dL (0-0)
[2020-09-08 09:38] LABS: BILIRUBIN,URINE Negative (NEGATIVE); COLOR,URINE YELLOW (YELLOW); LEUKOCYTE ESTERASE ,URINE Negative (NEGATIVE); NITRITE, URINE Negative (NEGATIVE); PH,URINE 5.5 (5.0-8.0); PROTEIN,URINE Negative (NEGATIVE); UGLUCOSE Negative (NEGATIVE); UROBILINOGEN,URINE 0.2 EU/dL (0.2)
--- NOTE | 2020-09-08 10:30 | NUR ---
Head Inspector note: director of physiotherapy services consult requested for patient presenting agitated with aggressive behavior. Patient is a 65-year-old, female. SW attempted to interview the patient but patient yelled, "don't talk to me, get out of here!" SW was unable to interview the patient and assess need for resources. Per chart, patient was brought in from an assisted living facility on 09/08/20 for aggressive behavior. SW contacted tax compliance agent, Taylor Lei RN, , to assess the patient. Dr. Franco notified. PLAN: Patient will be assessed by tax compliance agent, aTylor Lei RN. SW will remain available as needed.
[2020-09-08] MEDS ORDERED: OLANZAPINE 10 MG VIAL IM ONE (10:37)
[2020-09-08] MEDS: OLANZAPINE 10 MG VIAL IM ONE (10:39)
--- NOTE | 2020-09-08 10:39 | NUR ---
PT IS AGGITATED, YELLING, VERBALLY ABUSIVE TO STAFF. DR ROSALES AWARE. ZYPREXIA 10MG IM GIVEN PER DR ROSALES VERBAL ORDER.
--- NOTE | 2020-09-08 12:50 | NUR ---
Pt awake started screaming- Able to answer simple questions SENIOR JAVASCRIPT ENGINEER here for evaluation
[2020-09-08] MEDS ORDERED: LORAZEPAM INJ 2 MG/ML VIAL ONE (13:05)
[2020-09-08] MEDS: LORAZEPAM INJ 2 MG/ML VIAL IM ONE (13:22)
[2020-09-08] MEDS: QUETIAPINE FUMARATE 100 MG TABLET PO STA (13:35)
--- NOTE | 2020-09-08 13:35 | NUR ---
pt got up- BRP but accidentally peed on pants. Refusing food but able to drink water. Gave 1Glass
--- NOTE | 2020-09-08 13:46 | NUR ---
TRANSPORT [facility] WILL BE HERE IN 45 MINS PER MILENA
--- NOTE | 2020-09-08 14:25 | NUR ---
REPORT GIVEN TO EMT FOR PT TRANSFER BACK TO FACILITY.
[2020-09-08 14:33] VITALS: BP 131/77
== END 2020-09-08 14:33 ==
LOC: ER 08:07
DX: R45.1 Restlessness and agitation (principal); F20.9 Schizophrenia, unspecified; I10 Essential (primary) hypertension; J44.9 Chronic obstructive pulmonary disease, unspecified; E03.9 Hypothyroidism, unspecified; R27.0 Ataxia, unspecified; Z86.19 Personal history of other infectious and parasitic diseases; E11.9 Type 2 diabetes mellitus without complications; Z79.890 Hormone replacement therapy; Z79.899 Other long term (current) drug therapy; Z20.822 Contact with and (suspected) exposure to COVID-19
CPT/HCPCS: 36415; 80048; 80076; 80143; 80307; 80320; 81003; 85025; 87426; 96372 ×2; 99284; C9803; J2060; J3490; G0480

== ENCOUNTER 2020-11-17 16:38 | Inpatient (IN) | payer OTHER ==
[~2020-11-17] VITALS: Ht 167.6 cm; Wt 54.0 kg
[~2020-11-17 16:38] MED LIST changes: +ACET-868 PO; -DIVA-78 PO; +DOCU-141 PO; -DOXE10CA2 PO; -ENOX40DI SQ; +GUAI100S11 PO; -HYDR12.55 PO; +IBUP-1953 PO; +LACT10SO69 PO; +MAG30ORA PO; +SENN-261 PO; +TEMA15CA PO; +TRAZ-182 PO
--- NOTE | 2020-11-17 17:00 | NUR ---
[id number], FROM HALF-WAY NOT EATING AND TAKING MEDICATIONS X FEW DAYS. PATIENT A/OX2, BREATHING EVEN AND UNLABORED, NO SOB NOTED. CONSERVATORSHIP PAPERS IN THE CHART.
[2020-11-17 17:59] LABS: BILIRUBIN,URINE SMALL (NEGATIVE); COLOR,URINE YELLOW (YELLOW); LEUKOCYTE ESTERASE ,URINE Negative (NEGATIVE); NITRITE, URINE Negative (NEGATIVE); PH,URINE 5.5 (5.0-8.0); PROTEIN,URINE Negative (NEGATIVE); UGLUCOSE Negative (NEGATIVE); UROBILINOGEN,URINE 0.2 EU/dL (0.2)
[2020-11-17 18:04] LABS: BACTERIA,URINE None seen /HPF (None Seen); MUCUS,URINE Many /LPF (None Seen); RBC,URINE 0-2 /HPF (0-2); SQUAMOUS EPITHELIAL CELL,UR Few /HPF (None Seen)
[2020-11-17 18:15] LABS: BASOPHILS # (AUTO) 0.1 K/uL (0.0-0.2); BASOPHILS % (AUTO) 1.1 % (0.0-2.0); HEMATOCRIT 48 % (33-45); HEMOGLOBIN 15.8 g/dL (11.5-14.8); LYMPHOCYTES # (AUTO) 1.9 K/uL (0.8-4.8); LYMPHOCYTES % (AUTO) 32.3 % (20.0-44.0); MEAN CORPUSCULAR HGB CONC 33 g/dl (31.0-36.0); MEAN CORPUSCULAR VOLUME 91 fL (82-100); MONOCYTES # (AUTO) 0.4 K/uL (0.1-1.30); MONOCYTES % (AUTO) 6.1 % (2.0-12.0); NEUTROPHILS # (AUTO) 3.5 K/uL (1.8-8.9); NEUTROPHILS % (AUTO) 58.5 % (43.0-81.0); PLATELET COUNT (AUTO) 313 K/uL (150-450); RED BLOOD CELL COUNT(AUTO) 5.27 MIL/uL (4.0-5.2); WHITE BLOOD COUNT (AUTO) 5.9 K/uL (4.3-11.0)
[2020-11-17 18:25] LABS: CALCIUM, SERUM 9.6 mg/dL (8.5-10.1); CARBON DIOXIDE 25 mmol/L (21-32); CHLORIDE 108 mmol/L (98-107); CREATININE 1.1 mg/dL (0.6-1.3); GLUCOSE 89 mg/dL (74-106); POTASSIUM 4.5 mmol/L (3.5-5.1); SODIUM SERUM 147 mmol/L (136-145); UREA NITROGEN, BLOOD 29 mg/dL (7-18)
[2020-11-17 18:30] LABS: ALANINE AMINOTRANSFERASE 18 U/L (12-78); ALBUMIN 3.9 g/dL (3.4-5.0); ALCOHOL, BLOOD < 3 mg/dL (0-0); ALKALINE PHOSPHATASE 95 U/L (46-116); ASPARTATE AMINOTRANSFERASE 16 U/L (15-37); BILIRUBIN,DIRECT 0.1 mg/dL (0.0-0.2); BILIRUBIN,TOTAL 0.4 mg/dL (0.2-1.0); TOTAL PROTEIN, SERUM 8.4 g/dL (6.4-8.2)
[2020-11-17 18:53] LABS: ACETAMINOPHEN < 0 ug/ml (10-30)
--- NOTE | 2020-11-17 19:29 | NUR ---
PAGED PANEL PER DR MALCOLM'S REQUEST
[2020-11-17] MEDS ORDERED: IV NS 0.9% 1,000 ML IV ONE (19:30)
[2020-11-17] MEDS ORDERED: hydrALAZINE HCL IV 20 MG VIAL IV PRN (20:00)
[2020-11-17] MEDS ORDERED: MORPHINE SULFATE INJ 2 MG/ML DISP.SYRIN IV PRN (20:00)
[2020-11-17] MEDS ORDERED: TEMAZEPAM 15 MG CAPSULE PO PRN (20:00)
[2020-11-17] MEDS ORDERED: ONDANSETRON HCL/PF 4 MG/2 ML VIAL IVP PRN (20:00)
[2020-11-17] MEDS ORDERED: LORAZEPAM 1 MG TABLET PO PRN (20:00)
[2020-11-17] MEDS ORDERED: IBUPROFEN 400 MG TABLET PO PRN (20:00)
[2020-11-17] MEDS ORDERED: MAG HYDROX/AL HYDROX/SIMETH 30 ML UDC PO PRN (20:00)
[2020-11-17] MEDS ORDERED: CEFTRIAXONE 1 G in IV D5W 50 ML IV SCH (20:00)
[2020-11-17] MEDS ORDERED: LABETALOL 20 MG/4 ML VIAL IV PRN (20:00)
[2020-11-17] MEDS ORDERED: IV NS 0.9% 1,000 ML IV PRN (20:00)
[2020-11-17] MEDS ORDERED: ACETAMINOPHEN 325 MG TABLET PO PRN (20:00)
[2020-11-17] MEDS ORDERED: Z GUARD REMEDY 2 OZ OINT TP PRN (20:00)
[2020-11-17] MEDS ORDERED: GUAIFENESIN 300 MG/15 ML UDC PO PRN (20:00)
--- NOTE | 2020-11-17 20:04 | NUR ---
COVID SWAB DONE AND SENT TO LAB
--- NOTE | 2020-11-17 20:32 | NUR ---
ms 109
--- NOTE | 2020-11-17 20:50 | NUR ---
TRANSFERRING PATIENT TO 109
--- NOTE | 2020-11-17 20:50 | NUR ---
REPORT GIVEN TO TESSA AMAYA
[2020-11-17] MEDS ORDERED: IBUPROFEN 600 MG TABLET PO PRN (21:00)
[2020-11-17 21:20] VITALS: BP 124/84
--- NOTE | 2020-11-17 21:20 | NUR ---
ADMIT NOTE RECEIVED PATIENT FROM ER TRANSFERRED TO ROOM 109. PATIENT IS ALERT AND ORIENTED TO NAME ONLY. SPEECH IS GARBLED, UNABLE TO FOLLOW COMMANDS. ON ROOM AIR, O2 SAT 100%. NO SIGNS OF ACUTE RESPIRATORY DISTRESS. NO SIGNS OF DISCOMFORT. IV ACCESS ON LEFT AC #18, PATENT AND INTACT. SKIN ASSESSMENT DONE, NOTED WITH BILATERAL FOOT REDNESS AND CALLUS. ORIENTED PATIENT TO ROOM, STAFF, AND CALL LIGHT. UNABLE TO UNDERSTAND, NEEDS EDUCATION REINFORCEMENT. BED LOCKED AND IN LOWEST POSITION. CALL LIGHT WITHIN REACH. BED ALARM ON. ALL NEEDS ANTICIPATED.
[2020-11-17] MEDS: TRAZODONE 50 MG TABLET PO SCH ×2 (22:00→22:09)
--- NOTE | 2020-11-17 22:00 | NUR ---
TRAZODONE NON-ADMINISTERED, PATIENT SPIT MEDICATION OUT. RISKS AND BENEFITS EXPLAINED, STILL STRONGLY REFUSED. PATIENT ALSO REQUESTING FOR SNACKS. HOWEVER ONCE OFFERED, PATIENT REFUSED SNACKS AND WATER.
[2020-11-17] MEDS: ENOXAPARIN SODIUM 40 MG/0.4 ML DISP.SYRIN SQ SCH (22:10)
[2020-11-17] MEDS: IV D5/0.45 NACL 1,000 ML IV PRN (22:16)
[2020-11-17] MEDS ORDERED: CEFTRIAXONE 1 G VIAL ONE (23:59)
[2020-11-18 04:00] VITALS: BP 132/81
--- NOTE | 2020-11-18 07:30 | NUR ---
RN NOTES PT FOUND SUPINE LYING ON R SIDE DISPLAYING NO S/S OF DISTRESS, FLACC = 0 AND BREATHING IS EVEN AND UNLABORED ON RA. L AC 18G IV INTACT AND PATIENT. VSS, WILL MONITOR. SAFETY MEASURES IN PLACE, BED L0CKED AND IN LOWEST POSITION, SIDE RAILS UPX2, CALL LIGHT WITHIN REACH, BED ALARM ARMED.
[2020-11-18] MEDS: LEVOTHYROXINE SODIUM 100 MCG TABLET PO SCH (08:10)
[2020-11-18] MEDS: QUETIAPINE FUMARATE 100 MG TABLET PO SCH ×2 (08:57→17:00)
[2020-11-18] MEDS: OXYBUTYNIN CHLORIDE 5 MG TABLET PO SCH (08:58)
[2020-11-18] MEDS: MEGESTROL ACETATE 40 MG TABLET PO SCH ×2 (08:58→17:00)
[2020-11-18] MEDS: SERTRALINE HCL 50 MG TABLET PO SCH (08:58)
[2020-11-18] MEDS: DOCUSATE SODIUM 100 MG CAPSULE PO SCH (08:58)
[2020-11-18] MEDS ORDERED: CEFTRIAXONE 1 G in IV D5W 50 ML IV SCH (10:45)
[2020-11-18 12:00] VITALS: BP 124/81
[2020-11-18] MEDS: ATORVASTATIN 40 MG TABLET PO SCH (17:52)
--- NOTE | 2020-11-18 19:29 | NUR ---
RN NOTE PT ENDORSED IN STABLE CONDITION FOR SOM TO HEATING AND VENTILATING DRAFTER RN. SBAR GIVEN, ALL QUESTIONS ANSWERED.
--- NOTE | 2020-11-18 19:45 | NUR ---
RN OPENING NOTE RECD PT IN BED, PT IS A/O X2, DIFFICULT TO UNDERSTAND, PT IS MISSING MANY TEETH, SPEECH IS UNCLEAR. PT IS ON ROOM AIR, NO SOB OR DISTRESS NOTED. PT ON M/S MONITORING. IV INTACT. PT DENIES PAIN. SAFETY PRECAUTIONS IN PLACE. HOB ELEVATED. SIDE RAILS UPX2 LOCKED IN LOWEST POSITION WITH BED ALARM ON. CALL LIGHT WITHIN REACH. ALL NEEDS ATTENDED AT THIS TIME. WILL CONT TO MONITOR.
[2020-11-18 20:00] VITALS: BP 125/77
[2020-11-18] MEDS: ENOXAPARIN SODIUM 40 MG/0.4 ML DISP.SYRIN SQ SCH (20:10)
[2020-11-18] MEDS: CEFTRIAXONE 1 G in IV D5W 50 ML IV SCH (20:11)
[2020-11-18] MEDS: TRAZODONE 50 MG TABLET PO SCH (21:09)
[2020-11-18] MEDS: IV D5/0.45 NACL 1,000 ML IV PRN (21:12)
--- NOTE | 2020-11-18 21:27 | NUR ---
RN NOTE: REFUSAL PT REFUSED DESYREL, DESPITE IMPORTANCE EDUCATION OF RISK AND BENEFITS X2 PT STILL REFUSES. VERBALIZES, "I WANT YOU TO LEAVE" WILL CONT TO MONITOR FOR SAFETY.
--- NOTE | 2020-11-19 05:06 | NUR ---
RN NOTE PT REFUSED 0400 VITALS. PT IGNORING CONTINUOUS ATTEMPTS TO TAKE VITALS, WHEN APPROACHING PT SAYS SHE IS GOING BACK TO BED. EDUCATED PT ON IMPORTANCE OF KEEPING TRACK OF VITAL SIGNS, PT APPEARS AGITATED AND STILL REFUSES. SPEECH STILL SOMEWHAT UNCLEAR.
--- NOTE | 2020-11-19 06:30 | NUR ---
RN NOTE PT REFUSED AM LABS. WILL TRY LATER AFTERNOON.
--- NOTE | 2020-11-19 06:59 | NUR ---
RN CLOSING NOTE PT REMAINS IN BED, RESTING WELL. NO SOB OR ACUTE DISTRESS NOTED. ALL NEEDS ATTENDED. BED BATH LINENS CHANGED. PT APPEARS COMFORTABLE,NO S/S OF PAIN. SAFETY MEASURES IN PLACE. HOB ELEVATED. SIDE RAILS UPX2 BED LOCKED IN LOWEST POSITION WITH BED ALARM ON. CALL LIGHT WITHIN REACH WILL ENDORSE TO DAY SHIFT RN FOR CONTINUATION OF CARE.
--- NOTE | 2020-11-19 07:30 | NUR ---
MS RN AM NOTE PT IN BED, A/O X2, DIFFICULT TO UNDERSTAND, UNCLEAR SPEECH, EASILY IRRITATED, ON ROOM AIR, NO SOB OR DISTRESS NOTED. PT DENIES PAIN. D5 1/2 NS AT 80 ML/HR TO LEFT AC G18 INFUSING WELL. SITE CLEAR. SEE NURSING FLOWSHEET FOR SKIN ISSUES. REGULAR DIET. SAFETY PRECAUTIONS IN PLACE. HOB ELEVATED. SIDE RAILS UPX2 LOCKED IN LOWEST POSITION WITH BED ALARM ON. CALL LIGHT WITHIN REACH. WILL CONT TO MONITOR.
[2020-11-19 08:00] VITALS: BP 109/70
[2020-11-19] MEDS: LEVOTHYROXINE SODIUM 100 MCG TABLET PO SCH (08:23)
[2020-11-19] MEDS: QUETIAPINE FUMARATE 100 MG TABLET PO SCH ×2 (09:00→17:00)
[2020-11-19] MEDS: SERTRALINE HCL 50 MG TABLET PO SCH (09:00)
[2020-11-19] MEDS: OXYBUTYNIN CHLORIDE 5 MG TABLET PO SCH (09:00)
[2020-11-19] MEDS: DOCUSATE SODIUM 100 MG CAPSULE PO SCH (09:00)
[2020-11-19] MEDS: MEGESTROL ACETATE 40 MG TABLET PO SCH ×2 (09:00→17:00)
--- NOTE | 2020-11-19 09:30 | NUR ---
RN NOTES PATIENT SPIT OUT HER MEDICATION EARLIER. REFUSED THE REST OF MEDICATIONS DESPITE PROVIDING INSTRUCTIONS AND EDUCATIONS.
[2020-11-19] MEDS: ENSURE ENLIVE 237 ML LIQUID (VANILLA) PO SCH ×2 (12:06→17:00)
--- NOTE | 2020-11-19 13:15 | NUR ---
RN NOTES MOLLY TORRES FROG FARMER AT BEDSIDE, AWARE THAT PATIENT HAS BEEN REFUSING TREATMENTS AND MEDICATIONS, BLOOD DRAWS AND VITAL SIGNS. PATIENT FOR PSYCH CONSULT
[2020-11-19] MEDS: IV D5/0.45 NACL 1,000 ML IV PRN (14:56)
--- NOTE | 2020-11-19 16:00 | NUR ---
RN NOTES PATIENT REFUSED VITAL SIGNS TAKEN.
[2020-11-19] MEDS: ATORVASTATIN 40 MG TABLET PO SCH (17:03)
--- NOTE | 2020-11-19 18:30 | NUR ---
MS RN CLOSING NOTE PT IN BED, A/O X2, DIFFICULT TO UNDERSTAND, UNCLEAR SPEECH, EASILY IRRITATED, ON ROOM AIR, NO SOB OR DISTRESS NOTED. PT DENIES PAIN. D5 1/2 NS AT 80 ML/HR TO LEFT AC G18 INFUSING WELL. SITE CLEAR. REGULAR DIET. SAFETY PRECAUTIONS IN PLACE. HOB ELEVATED. SIDE RAILS UPX2 LOCKED IN LOWEST POSITION WITH BED ALARM ON. CALL LIGHT WITHIN REACH. ALL NEEDS MET. PM CARE DONE EARLIER. WILL ENDORSE TO NEXT SHIFT FOR SOM. MOLLY TORRES NP, AWARE PATIENT HAS REFUSED ALL MEDICATIONS. FOR PSYCH CONSULT. FACESHEET FAXED TO [facility]ER.
[2020-11-19] MEDS: ENOXAPARIN SODIUM 40 MG/0.4 ML DISP.SYRIN SQ SCH (20:00)
[2020-11-19] MEDS: CEFTRIAXONE 1 G in IV D5W 50 ML IV SCH (20:46)
--- NOTE | 2020-11-19 21:22 | NUR ---
RN NOTES INFORMED ONCALL (DR MICHAEL) THAT PT REFUSED SCHEDULED V/S AND MEDS. SAME ISSUE IN THE AM SHIFT AND AM HOSPITALIST WELL AWARE PER AM SHIFT. MD ACKNOWLEDGED. DIESEL LOCOMOTIVE FIRER/FIREMAN MADE AWARE.
--- NOTE | 2020-11-19 21:24 | NUR ---
RN NOTES REPORT GIVEN TO TESSA WHEELER FOR SOM. RACING SECRETARY MADE AWARE.
[2020-11-19] MEDS: TRAZODONE 50 MG TABLET PO SCH (22:30)
[2020-11-20 04:00] VITALS: BP 111/72
[2020-11-20 04:32] VITALS: BP 111/72
[2020-11-20] MEDS: SERTRALINE HCL 50 MG TABLET PO SCH ×2 (09:00→12:57)
[2020-11-20] MEDS: DOCUSATE SODIUM 100 MG CAPSULE PO SCH (09:00)
[2020-11-20] MEDS: OXYBUTYNIN CHLORIDE 5 MG TABLET PO SCH (09:01)
[2020-11-20] MEDS: MEGESTROL ACETATE 40 MG TABLET PO SCH ×3 (09:01→17:00)
[2020-11-20] MEDS: ENSURE ENLIVE 237 ML LIQUID (VANILLA) PO SCH ×3 (09:01→16:30)
[2020-11-20] MEDS: LEVOTHYROXINE SODIUM 100 MCG TABLET PO SCH (09:01)
[2020-11-20] MEDS: QUETIAPINE FUMARATE 100 MG TABLET PO SCH ×3 (09:01→17:00)
[2020-11-20 12:23] VITALS: BP 131/58
[2020-11-20] MEDS ORDERED: QUETIAPINE FUMARATE 25 MG TABLET PO ONE (13:00)
[2020-11-20] MEDS: ATORVASTATIN 40 MG TABLET PO SCH ×2 (17:09→17:23)
--- NOTE | 2020-11-20 19:20 | NUR ---
RN NOTE RECEIVED PATIENT IN BED RESTING ALERT ORIENTEDX1 VERBALLY RESPONSIVE ON ROOM AIR O2:97% IV SITE IS ON LEFT WRIST INTACT PATENT, INCONTINENT TO BOWEL/BLADDER,SAFETY MEASURE IMPLEMENT BED IN LOW POSITION AND LOCKED,BED ALARM IS ON CONTINUE TO MONITOR.
--- NOTE | 2020-11-20 19:22 | NUR ---
MS RN CLOSING NOTE PATIENT CURRENTLY LYING IN BED, A/O X1, NONVERBAL AT TIMES AND DIFFICULT TO UNDERSTAND. PATIENT GETS IRRITATED AT TIMES. STABLE ON ROOM AIR - NO SOB NOTED. NO DISTRESS/DISCOMFORT NOTED. IV ACCESS TO RIGHT WRIST #22 - HEP LOCKED. PATIENT REFUSED ALL MEDICATIONS TODAY. SAFETY PRECAUTIONS IN PLACE. CALL LIGHT WITHIN REACH. WILL ENDORSE TO MAINFRAME ANALYST FOR SOM.
[2020-11-20 20:00] VITALS: BP 121/89
[2020-11-20] MEDS: CEFTRIAXONE 1 G in IV D5W 50 ML IV SCH ×2 (20:00→20:01)
[2020-11-20] MEDS: ENOXAPARIN SODIUM 40 MG/0.4 ML DISP.SYRIN SQ SCH (20:00)
--- NOTE | 2020-11-20 21:00 | NUR ---
RN NOTE PATIENT REFUSED ALL MEDS SHE SAID SHE DOESN'T NEEDS THAT MEDS,EXPLAINED RISK OF NOT GETTING MEDICATION SHE STRONGLY REFUSED CONTINUE TO MONITOR.
[2020-11-20] MEDS: TRAZODONE 50 MG TABLET PO SCH (22:00)
[2020-11-21 04:00] VITALS: BP 128/80
--- NOTE | 2020-11-21 06:39 | NUR ---
RN NOTE PATIENT REMAINS ON ALERT ORIENTED X1 CONFUSED SLEEPING IN BED,NO SOB NOT ACUTE DISTRESS NOTED ON ROOM AIR O2:97% ENDORSE NEXT COMING SHIFT FOR CONTINUATION OF CARE.
--- NOTE | 2020-11-21 08:00 | NUR ---
rn notes received patient in the room lying, a/o x3 with confused, need more encouragement daily basis, medication intake, and eating. patient bed rest, incontinent of urine. iv access on left hand intact. blood is taken after long explanation. call light within to reach. will follow up.
[2020-11-21] MEDS: ENSURE ENLIVE 237 ML LIQUID (VANILLA) PO SCH ×3 (09:00→17:36)
[2020-11-21] MEDS: OXYBUTYNIN CHLORIDE 5 MG TABLET PO SCH (11:09)
[2020-11-21] MEDS: QUETIAPINE FUMARATE 100 MG TABLET PO SCH ×4 (11:09→17:00)
[2020-11-21] MEDS: MEGESTROL ACETATE 40 MG TABLET PO SCH ×2 (11:10→17:00)
[2020-11-21] MEDS: SERTRALINE HCL 50 MG TABLET PO SCH ×3 (11:10→13:36)
[2020-11-21] MEDS: LEVOTHYROXINE SODIUM 100 MCG TABLET PO SCH (11:10)
[2020-11-21] MEDS: DOCUSATE SODIUM 100 MG CAPSULE PO SCH (11:10)
[2020-11-21 12:00] VITALS: BP 110/73
[2020-11-21 12:21] LABS: CALCIUM, SERUM 9.1 mg/dL (8.5-10.1); CREATININE 0.9 mg/dL (0.6-1.3); POTASSIUM 5.6 mmol/L (3.5-5.1)
[2020-11-21 13:18] LABS: BASOPHILS % (AUTO) 0.6 % (0.0-2.0); EOSINOPHILS % (AUTO) 2.1 % (0.0-6.0); HEMATOCRIT 44 % (33-45); HEMOGLOBIN 14.6 g/dL (11.5-14.8); LYMPHOCYTES # (AUTO) 1.6 K/uL (0.8-4.8); LYMPHOCYTES % (AUTO) 29.7 % (20.0-44.0); MEAN CORPUSCULAR HGB CONC 33 g/dl (31.0-36.0); MEAN CORPUSCULAR VOLUME 91 fL (82-100); MONOCYTES # (AUTO) 0.4 K/uL (0.1-1.30); MONOCYTES % (AUTO) 6.5 % (2.0-12.0); NEUTROPHILS # (AUTO) 3.3 K/uL (1.8-8.9); NEUTROPHILS % (AUTO) 61.1 % (43.0-81.0); PLATELET COUNT (AUTO) 238 K/uL (150-450); RED BLOOD CELL COUNT(AUTO) 4.81 MIL/uL (4.0-5.2); WHITE BLOOD COUNT (AUTO) 5.5 K/uL (4.3-11.0)
--- NOTE | 2020-11-21 13:41 | NUR ---
rn notes will transfer covid -negative patient to the room 307 bed 2 . scheduled medication administered, patient stable.
--- NOTE | 2020-11-21 13:52 | NUR ---
rn notes patient refused 1300 offered x3, but still refused. hospitalist refusal of medication .
[2020-11-21] MEDS ORDERED: IV NS 0.9% 1,000 ML IV ONE (14:00)
[2020-11-21] MEDS ORDERED: SODIUM POLYSTYRENE SULFONATE 15 G/60 ML BOTTLE PO ONE (14:30)
--- NOTE | 2020-11-21 14:30 | NUR ---
rn notes transferred patient to the med/surge unit room 307 bed 2. Patient stable, VSS, bedside repost given Chester RN inserted follow plan of care. inserted new iv access on right FA intact #20 gauge.
--- NOTE | 2020-11-21 14:35 | NUR ---
RN NOTE- RECEIVED PT . VS STABLE. PT OPPOSITIONAL TO CARE MEDS AND TX. PT LABS REVIEWED. SENIOR TRAINER TORRES AWARE OF TRANSFER. ORDERS RECEIVED AND COMPLIED WITH. SIDE RAILS UP, BED LOCKED, MARIA FERNANDA MYERS IN REACH . MONITOR FOR SAFETY
[2020-11-21 15:53] VITALS: BP 97/55
[2020-11-21] MEDS: ATORVASTATIN 40 MG TABLET PO SCH (17:36)
--- NOTE | 2020-11-21 18:42 | NUR ---
RN CLOSING NOTE- PT CURRENTLY IN BED, A/O X1, NONVERBAL AT TIMES AND DIFFICULT TO UNDERSTAND. OPPOSITIONAL TO CARE AND MEDS. STABLE ON ROOM AIR - NO SOB NOTED. NO DISTRESS/DISCOMFORT NOTED. IV ACCESS TO RFA #20. . SAFETY PRECAUTIONS IN PLACE. CALL LIGHT WITHIN REACH. WILL ENDORSE TO NOC SHIFT FOR CARE.
--- NOTE | 2020-11-21 19:10 | NUR ---
RN OPENING NOTE PT RESTING IN BED, LYING ON HER R-SIDE, A/OX1, VERBAL WITH CONFUSION. REORIENTATION PROVIDED. NO S/S OF PAIN/DISCOMFORT NOTED. RESP EVEN/UNLABORED. ON ROOM AIR AND CHERIE WELL. IV SITE: R-FA #20G INTACT/PATENT/FLUSHES WELL. PT IN NO ACUTE DISTRESS. SAFETY MEASURES IN PLACE, BED IN LOWEST LOCKED POSITION, S/R UPX2, CALL LIGHT WITHIN REACH. WILL CONT TO MONITOR.
[2020-11-21] MEDS: CEFTRIAXONE 1 G in IV D5W 50 ML IV SCH (19:58)
[2020-11-21 20:00] VITALS: BP 101/64
[2020-11-21] MEDS: ENOXAPARIN SODIUM 40 MG/0.4 ML DISP.SYRIN SQ SCH (20:30)
[2020-11-21] MEDS: TRAZODONE 50 MG TABLET PO SCH (21:41)
--- NOTE | 2020-11-21 21:43 | NUR ---
RN NOTE TRAZODONE NON-ADMIN, PT SPIT MEDICATION OUT
[2020-11-22 06:31] LABS: BASOPHILS # (AUTO) 0.1 K/uL (0.0-0.2); BASOPHILS % (AUTO) 2.2 % (0.0-2.0); EOSINOPHILS % (AUTO) 4.4 % (0.0-6.0); HEMATOCRIT 39 % (33-45); HEMOGLOBIN 13.2 g/dL (11.5-14.8); LYMPHOCYTES # (AUTO) 1.8 K/uL (0.8-4.8); LYMPHOCYTES % (AUTO) 41.5 % (20.0-44.0); MEAN CORPUSCULAR HGB CONC 34 g/dl (31.0-36.0); MEAN CORPUSCULAR VOLUME 91 fL (82-100); MONOCYTES # (AUTO) 0.4 K/uL (0.1-1.30); MONOCYTES % (AUTO) 8.4 % (2.0-12.0); NEUTROPHILS # (AUTO) 1.9 K/uL (1.8-8.9); NEUTROPHILS % (AUTO) 43.5 % (43.0-81.0); PLATELET COUNT (AUTO) 237 K/uL (150-450); RED BLOOD CELL COUNT(AUTO) 4.34 MIL/uL (4.0-5.2); WHITE BLOOD COUNT (AUTO) 4.3 K/uL (4.3-11.0)
--- NOTE | 2020-11-22 06:49 | NUR ---
RN CLOSING NOTE PT RESTING IN BED, EASILY AROUSABLE TO STIMULI. A/OX1, FLAT AFFECT. NO S/S OF PAIN/DISCOMFORT. NO SOB. IV SITE ON R-FA #20 INTACT/PATENT/FLUSHES WELL. PT MORE COOPERATIVE THIS MORNING AND HAD LET LAB STAFF DRAW BLOOD FOR AM LABS. NO ACUTE EVENTS DURING THE NIGHT. ENDORSED TO NEXT SHIFT NURSE.
[2020-11-22] MEDS: LEVOTHYROXINE SODIUM 100 MCG TABLET PO SCH (07:30)
--- NOTE | 2020-11-22 07:30 | NUR ---
RN OPENING NOTE- PT SLEEPING IN BED, AWAKENED. A/OX1, VERBAL WITH CONFUSION. REORIENTATION PROVIDED. NO S/S OF PAIN/DISCOMFORT NOTED. RESP EVEN/UNLABORED. IV SITE: R-FA #20G INTACT/PATENT/FLUSHES WELL. PT IN NO ACUTE DISTRESS. SAFETY MEASURES IN PLACE, BED IN LOWEST LOCKED POSITION, S/R UPX2, CALL LIGHT WITHIN REACH. WILL CONT TO MONITOR.
[2020-11-22 07:36] LABS: CREATININE 0.8 mg/dL (0.6-1.3); MAGNESIUM 2.1 mg/dL (1.8-2.4); POTASSIUM 4.2 mmol/L (3.5-5.1)
[2020-11-22 07:47] LABS: CALCIUM, SERUM 7.8 mg/dL (8.5-10.1)
[2020-11-22 08:00] VITALS: BP_SYST 117; BP_SYST 152; BP_DIAS 73; BP_DIAS 82
[2020-11-22] MEDS: SERTRALINE HCL 50 MG TABLET PO SCH ×2 (08:00→13:00)
[2020-11-22] MEDS: MEGESTROL ACETATE 40 MG TABLET PO SCH ×2 (08:50→17:00)
[2020-11-22] MEDS: QUETIAPINE FUMARATE 100 MG TABLET PO SCH ×3 (08:50→17:00)
[2020-11-22] MEDS: OXYBUTYNIN CHLORIDE 5 MG TABLET PO SCH (08:50)
[2020-11-22] MEDS: ENSURE ENLIVE 237 ML LIQUID (VANILLA) PO SCH ×3 (08:50→17:00)
[2020-11-22] MEDS: DOCUSATE SODIUM 100 MG CAPSULE PO SCH (08:50)
[2020-11-22] MEDS: CEFAZOLIN 1 GM in IV D5W 50 ML IV SCH ×2 (11:23→20:19)
--- NOTE | 2020-11-22 11:23 | NUR ---
RN NOTE- ERYTHEMA NOTED TO LEFT ARM AT OLD BLOOD DRAW SITE. SLIGHT WARMTH NOTED. CONTACT CENTER REP TORRES AWARE . MARKED BORDER EDGES W MARKER TO MONITOR
[2020-11-22 16:00] VITALS: BP 106/63
[2020-11-22] MEDS: ATORVASTATIN 40 MG TABLET PO SCH (18:00)
--- NOTE | 2020-11-22 18:42 | NUR ---
RN CLOSING NOTE- PT IN BED,. A/OX1, VERBAL WITH CONFUSION. REORIENTATION PROVIDED. NO S/S OF PAIN/DISCOMFORT NOTED. RESP EVEN/UNLABORED. IV SITE: R-FA #20G INTACT/PATENT/FLUSHES WELL. PT IN NO ACUTE DISTRESS. SAFETY MEASURES IN PLACE, BED IN LOWEST LOCKED POSITION, S/R UPX2, CALL LIGHT WITHIN REACH. WILL CONT TO MONITOR
--- NOTE | 2020-11-22 19:15 | NUR ---
RN OPENING NOTE PT RESTING IN BED, A/OX1, VERBALLY RESPONSIVE BUT WITH CONFUSION. REORIENTATION PROVIDED. RESPIRATIONS EVEN/UNLABORED. ON ROOM AIR AND CHERIE WELL. IV SITE ON R-FA #20G INTACT/PATENT/FLUSHES WELL. PT ABLE TO REPOSITION HERSELF FROM SIDE TO SIDE. NO ACUTE DISTRESS NOTED. SAFETY MEASURES IN PLACE, BED IN LOWEST LOCKED POSITION, S/R UPX2, CALL LIGHT WITHIN REACH. WILL CONT TO MONITOR.
[2020-11-22 20:00] VITALS: BP 98/68
[2020-11-22] MEDS: ENOXAPARIN SODIUM 40 MG/0.4 ML DISP.SYRIN SQ SCH (20:27)
[2020-11-22] MEDS: TRAZODONE 50 MG TABLET PO SCH (22:56)
[2020-11-23] MEDS: CEFAZOLIN 1 GM in IV D5W 50 ML IV SCH ×2 (04:01→13:34)
[2020-11-23 06:49] LABS: BASOPHILS # (AUTO) 0.1 K/uL (0.0-0.2); EOSINOPHILS % (AUTO) 4.6 % (0.0-6.0); HEMATOCRIT 38 % (33-45); HEMOGLOBIN 12.7 g/dL (11.5-14.8); LYMPHOCYTES # (AUTO) 1.5 K/uL (0.8-4.8); LYMPHOCYTES % (AUTO) 40.9 % (20.0-44.0); MEAN CORPUSCULAR HGB CONC 34 g/dl (31.0-36.0); MEAN CORPUSCULAR VOLUME 91 fL (82-100); MONOCYTES # (AUTO) 0.4 K/uL (0.1-1.30); MONOCYTES % (AUTO) 11.6 % (2.0-12.0); NEUTROPHILS # (AUTO) 1.5 K/uL (1.8-8.9); NEUTROPHILS % (AUTO) 39.9 % (43.0-81.0); PLATELET COUNT (AUTO) 244 K/uL (150-450); RED BLOOD CELL COUNT(AUTO) 4.19 MIL/uL (4.0-5.2); WHITE BLOOD COUNT (AUTO) 3.8 K/uL (4.3-11.0)
--- NOTE | 2020-11-23 06:50 | NUR ---
RN CLOSING NOTE PT RESTING IN BED, AWAKE, A/OX1, VERBAL WITH CONFUSION. REORIENTATION PROVIDED. NO S/S OF PAIN/DISCOMFORT. NO SOB. IV SITE ON R-FA #20 INTACT/PATENT/FLUSHES WELL. PT MORE COOPERATIVE AND TAKES MEDS OFFERED WITH APPLE SAUCE. NO ACUTE EVENTS DURING THE NIGHT. ENDORSED TO NEXT SHIFT NURSE.
[2020-11-23 07:04] LABS: CALCIUM, SERUM 7.7 mg/dL (8.5-10.1); CREATININE 0.9 mg/dL (0.6-1.3); POTASSIUM 4.1 mmol/L (3.5-5.1)
[2020-11-23 08:00] VITALS: BP 109/63
[2020-11-23] MEDS: ENSURE ENLIVE 237 ML LIQUID (VANILLA) PO SCH ×3 (08:29→17:00)
[2020-11-23] MEDS: LEVOTHYROXINE SODIUM 100 MCG TABLET PO SCH (08:33)
[2020-11-23] MEDS: OXYBUTYNIN CHLORIDE 5 MG TABLET PO SCH (08:34)
[2020-11-23] MEDS: SERTRALINE HCL 50 MG TABLET PO SCH ×2 (08:34→12:46)
[2020-11-23] MEDS: MEGESTROL ACETATE 40 MG TABLET PO SCH ×2 (08:34→17:00)
[2020-11-23] MEDS: QUETIAPINE FUMARATE 100 MG TABLET PO SCH ×3 (08:34→17:00)
[2020-11-23] MEDS ORDERED: DOCUSATE SODIUM 250 MG CAPSULE PO SCH (09:00)
--- NOTE | 2020-11-23 09:59 | NUR ---
m/s canoe inspector final: md visit seen and examined by lala nicole (barrel lathe operator) with order for p.t. re eval. order acknowledged. for snf placement per barrel lathe operator. informed lala that pt is incontinent of bladder and unable to collect urine with order to disregard it, i will put her on keflex as stated.
--- NOTE | 2020-11-23 10:30 | NUR ---
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 order acknowledged.
--- NOTE | 2020-11-23 11:03 | NUR ---
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 rivera and cleared her for discharge to snf. case management making arrangement.
--- NOTE | 2020-11-23 14:00 | NUR ---
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 cn aware.
[2020-11-23 16:00] VITALS: BP 107/54
--- NOTE | 2020-11-23 16:00 | NUR ---
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 case management still making arrangement.
[2020-11-23] MEDS: ATORVASTATIN 40 MG TABLET PO SCH (17:35)
--- NOTE | 2020-11-23 18:00 | NUR ---
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 cn made aware. pt remains confused and disoriented to time, place, and situation. reality orientation provided prn. will continue to monitor.
--- NOTE | 2020-11-23 18:30 | NUR ---
m/s long term: notes report given to hayley (rigoberto) from [facility] for continuity of care.
--- NOTE | 2020-11-23 19:00 | NUR ---
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
--- NOTE | 2020-11-23 19:19 | NUR ---
RN OPENING NOTES PT RESTING IN BED A/0 X3, VERBALLY RESPONSIVE BUT FORGETFUL AT TIMES. REORIENTATION PROVIDED. RESPIRATIONS EVEN/UNLABORED. ON ROOM AIR AND CHERIE WELL. IV SITE ON R-FA #20G INTACT/PATENT/FLUSHES WELL. PT ABLE TO REPOSITION HERSELF FROM SIDE TO SIDE. NO ACUTE DISTRESS NOTED. SAFETY MEASURES IN PLACE, BED IN LOWEST LOCKED POSITION, S/R UPX2, CALL LIGHT WITHIN REACH. WILL CONT TO MONITOR.
[2020-11-23 20:00] VITALS: BP 123/58
[2020-11-23] MEDS: ENOXAPARIN SODIUM 40 MG/0.4 ML DISP.SYRIN SQ SCH (20:00)
--- NOTE | 2020-11-23 20:49 | NUR ---
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 guardian called regarding picking tech. Addendum: 11/23/20 at 2050 by RONNIE VÁSQUEZ RN noted pt has no belongings at bed side called alicia to confirm if pt had any belongins there no belongings found. charge nurse aware.
--- NOTE | 2020-11-23 20:54 | NUR ---
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
== END 2020-11-23 20:47 | DRG 421 ==
LOC: ER 16:44 → MEDSG1 20:43 → MED 11-21 14:02
PROVIDERS: ADMIT Internal Medicine; ATTEND Nurse Practitioner Family
DX: R62.7 Adult failure to thrive (principal); G93.41 Metabolic encephalopathy; E43 Unspecified severe protein-calorie malnutrition; E87.2 Acidosis; E87.0 Hyperosmolality and hypernatremia; E86.0 Dehydration; N39.0 Urinary tract infection, site not specified; E88.89 Other specified metabolic disorders; F25.9 Schizoaffective disorder, unspecified; E87.1 Hypo-osmolality and hyponatremia; E78.5 Hyperlipidemia, unspecified; I10 Essential (primary) hypertension; Z68.1 Body mass index [BMI] 19.9 or less, adult; E03.9 Hypothyroidism, unspecified; M19.90 Unspecified osteoarthritis, unspecified site; F32.9 Major depressive disorder, single episode, unspecified; E78.00 Pure hypercholesterolemia, unspecified; Z88.8 Allergy status to other drugs, medicaments and biological substances; Z79.899 Other long term (current) drug therapy; T73.0XXA Starvation, initial encounter; X58.XXXA Exposure to other specified factors, initial encounter; L03.114 Cellulitis of left upper limb; R53.2 Functional quadriplegia; F41.9 Anxiety disorder, unspecified; F01.50 Vascular dementia, unspecified severity, without behavioral disturbance, psychotic disturbance, mood disturbance, and anxiety; Z20.822 Contact with and (suspected) exposure to COVID-19
CPT/HCPCS: 36415; 71045-TC; 80048-TC; 80076-TC; 81001; 82010-TC; 83605-TC; 83735-TC; 84443-TC; 85025-TC; 87081-TC; 92526; 92611-TC; 97112-TC; 97530-TC; 97535-TC; C9803; G0378; G0480; J0690; J0696; J1650; J3490; J7030; J7050; J7060; U0003